=== PATIENT | female | born 1955 | race Caucasian/White ===

== ENCOUNTER 2025-06-04 09:24 | Emergency (ER) | payer OTHER, SELFPAY ==
[2025-06-04 09:44] VITALS: BP 179/111
[2025-06-04 11:03] VITALS: BP 159/100
--- NOTE | 2025-06-04 11:11 | ED.GENMED ---
History of Present Illness
General
Chief Complaint: Blood Pressure Problem
Source: patient
Exam Limitations: none
Time Seen by Provider: 06/04/25 10:58
History of Present Illness
History of Present Illness:
70-year-old female with history of hypertension presents with elevated blood pressure readings. She ran out of her lisinopril 20 mg about a week ago. She is due for another appointment in 2 weeks. She is accompanied by her daughter who states the
patient has not had any chest pain shortness of breath dizziness. There is no other complaints other than a subtle flushing noted of her face which is typical.
Past History
Past History
ED Past Medical History: HTN, Hypercholesterolemia and Other (Pancreatitis, Early Dementia, Intellectual disability)
ED Past Surgical History: Cholecystectomy
Social History
Tobacco: Non-smoker
Alcohol: None
Personal:
Living: with family
Phy Exam
Physical Exam
Physical Exam:
General: Well-appearing female no acute respiratory distress
HEENT normocephalic atraumatic
Heart: Regular rate and rhythm
Lungs: Clear no wheeze
Extremities: No cyanosis
Skin: Warm no rash
Course
Orders/Labs/Results
Orders:
Orders
06/04/25 09:48
ECG [Electrocardiogram (*1)] Urgent
Reason for Study: Hypertension, Benign
06/04/25 09:49
EKG- Treatment ONCE
06/04/25 11:06
Lisinopril [Zestril] 20 mg PO NOW STA
06/04/25 11:16
Lisinopril [Zestril] 20 mg .ROUTE .STK-MED ONE
06/04/25 11:40
Complete Blood Count/With Diff Urgent
Comprehensive Metabolic Panel Urgent
Abnormal Lab Results
06/04/25
11:40
Glucose 135 H mg/dl
(70-99)
06/04/25 11:40
06/04/25 11:40
Vital Signs
Initial and Last Documented VS:
Initial Vital Signs
Temp Pulse Resp BP Pulse Ox
98.1 F 81 20 179/111 96
06/04/25 09:44 06/04/25 09:44 06/04/25 09:44 06/04/25 09:44 06/04/25 09:44
Last Documented Vital Signs
Temp Pulse Resp BP Pulse Ox
98.1 F 71 14 158/96 97
06/04/25 09:44 06/04/25 13:15 06/04/25 13:15 06/04/25 13:00 06/04/25 13:00
MDM/Problems Addressed
Differential Diagnosis Includes:
Elevated blood pressure with history of the same no complaints. Blood pressure is elevated here she has not had labs in over a year we will check a quick set of blood work but will start on lisinopril 20 mg
*Pulse Oximetry
SaO2: 96
Oxygen Mode of Delivery: Room air
Patient hypoxic: no
*Critical Care Note
Total Time (30-74mins, 75-104mins- exclusive of procedures): Not Applicable
Update Note
Update Note:
Labs reviewed without significant finding. Patient with known history of hypertension currently with elevated blood pressure readings but asymptomatic. Will restart on lisinopril and have her follow-up
ED Attending Note
-
Portions of this chart may have been created with voice recognition software.� Occasional wrong word or��sound alike� substitutions may have occurred due to the inherent limitations of voice recognition software.
Discharge Plan
Departure
Patient Disposition: Home (Routine Discharge)
Date of Disposition: 06/04/25
Time of Disposition: 12:57
Patient with high blood pressure during this ER visit?: No
Discharge Problem:
Hypertension
Instructions: High Blood Pressure (DC)
Prescriptions:
New
lisinopril 20 mg tablet
20 mg PO DAILY Qty: 30 0RF
No Action
simvastatin 20 MG tablet
20 mg PO QPM
folic acid 1 MG tablet
1 mg PO DAILY
cyanocobalamin (vitamin B-12) 1,000 MCG tablet
1,000 mcg PO DAILY
ergocalciferol (vitamin D2) 50,000 UNITS capsule
50,000 units PO FR
ibuprofen 600 MG tablet
600 mg PO Q6HPRN PRN (Reason: pain)
chlorhexidine gluconate 1 ML mouthwash
5 ml MM BID
Patient Comments:
swish and spit
famotidine [Pepcid] 40 MG tablet
40 mg PO DAILY Qty: 7 0RF
diphenhydramine HCl [Banophen] 25 MG capsule
25 mg PO Q6 Qty: 20 0RF
methylprednisolone [Medrol (Raul)] 4 MG tablets,dose pack
4 tab PO . DIRECT Qty: 1 0RF
lisinopril 5 MG tablet
5 mg PO DAILY Qty: 0 0RF
(DME) blood sugar diagnostic [Blood Glucose Test] 1 EACH strip
1 ea MC DAILY Qty: 100 0RF
Referrals:
Ruslan Uriarte DO [Family Provider, Family Practice]
Activity Restrictions/Additional Instructions:
Take medicine as directed. Follow-up with your doctor as planned. Return if worse otherwise
Interventions
Interventions:
*Risk Screen - Suicide Last Done: 06/04/25 09:44
*General Assessment Last Done: 06/04/25 09:44
*Neglect/Abuse Screening Last Done: 06/04/25 11:33
*ED- Fall Risk Assessment Last Done: 06/04/25 11:32
*Nursing Disposition Last Done: 06/04/25 13:27
ED- Cardiac Assessment Last Done: 06/04/25 11:33
ED- Neurological Assessment Last Done: 06/04/25 11:33
ED- Pulmonary Assessment Last Done: 06/04/25 11:33
Discharge Date and Time
Discharge Date/Time: 06/04/25 13:27
Print Language: TANZANIAN
[2025-06-04] MEDS: ZESTRIL 20 MG PO (11:20)
[2025-06-04 11:49] LABS: Hematocrit 43.1 % (37.0-47.0); Hemoglobin 14.8 g/dL (12.0-16.0); Mean Corp Hgb Conc. 34.3 g/dL (33.0-37.0); Mean Corpuscular Volume 87.4 fL (81.0-99.0); Nucleated Red Blood Cells % 0 %; Platelet Count 206 10^3/uL (130-400); Red Cell Dist. Width 14.3 % (11.5-14.5)
[2025-06-04 12:00] VITALS: BP 159/94
[2025-06-04 12:05] LABS: ALT (SGPT) 18 U/L (0-35); AST (SGOT) 20 U/L (14-36); Albumin 4.3 g/dl (3.5-5.0); Alkaline Phosphatase 91 U/L (38-126); Blood Urea Nitrogen 15 mg/dl (7-17); Calcium 9.1 mg/dl (8.4-10.2); Carbon Dioxide 27 mmol/L (22-30); Chloride 107 mmol/L (98-107); Glucose 135 mg/dl (70-99); Potassium 4.9 mmol/L (3.5-5.1); Sodium 140 mmol/L (135-145); Total Protein 7.2 g/dl (6.3-8.2); eGFR > 60.00
[2025-06-04 13:00] VITALS: BP 158/96
== END 2025-06-04 13:27 | disposition home or self-care (01) ==
LOC: EMR 09:24
PROVIDERS: EMERGENCY PHYSICIAN Emergency Medicine; FAMILY PHYSICIAN Family Medicine
DX: I10 Essential (primary) hypertension (principal); E78.00 Pure hypercholesterolemia, unspecified; Z90.49 Acquired absence of other specified parts of digestive tract; Z76.0 Encounter for issue of repeat prescription
CPT/HCPCS: 99284; 80053; 85025; 93005